=== PATIENT | female | born 2000 | race Caucasian/White ===

== ENCOUNTER 2024-01-11 06:34 | Outpatient (REF) | payer BC, SELFPAY ==
--- NOTE | ~2024-01-11 | US_ITS ---
EXAMINATION: US PELVIS, TRANSABDOMINAL AND TRANSVAGINAL CLINICAL INFORMATION: Weight loss. COMPARISON: None available. TECHNIQUE: Ultrasound of the pelvis is performed using both transabdominal and transvaginal transducers along with Doppler. Transvaginal imaging is performed due to inadequate visualization transabdominally. FINDINGS: UTERUS: The uterus is anteverted and measures 6.8 x 3.0 x 4.3 cm. The double wall endometrial thickness is 6 mm. The uterus is smooth in contour and has normal myometrial echogenicity. No visible fibroid. ADNEXA: Both ovaries are visualized. There is normal color flow to the adnexa. There is no ovarian torsion. There is no pelvic ascites or fluid collection. Right ovary measures 3.1 x 1.6 x 1.8 cm for a volume of 4.2 mL and appears normal. Left ovary measures 4.9 x 2.9 x 5.0 cm for a volume of 38 mL and contains a complex hemorrhagic cyst measuring 4.1 x 2.6 x 4.2 cm. US/US pelvic and transvaginal IMPRESSION: Hemorrhagic left ovarian cyst. A follow-up endovaginal ultrasound is recommended in 3 months. Electronically signed by: Jackson Walsh MD 01/17/2024 03:51 PM EDT
== END 2024-01-11 06:35 | disposition home or self-care (01) ==
LOC: HO.UMASIMG 06:34
PROVIDERS: Visit Provider Family Medicine
DX: R63.4 Abnormal weight loss (principal); L65.9 Nonscarring hair loss, unspecified
CPT/HCPCS: 76830; 76856

== ENCOUNTER 2024-01-16 06:42 | Outpatient (REF) | payer BC, SELFPAY ==
--- NOTE | ~2024-01-16 | US_ITS ---
EXAMINATION: US ABDOMEN COMPLETE CLINICAL INFORMATION: Abnormal weight loss. COMPARISON: None available. TECHNIQUE: Real-time imaging of the abdominal viscera. FINDINGS: PANCREAS: The visualized pancreas appears unremarkable but the pancreatic tail is obscured by bowel gas. ABDOMINAL AORTA: The proximal, mid, and distal segments are normal in caliber. INFERIOR VENA CAVA: Visualized portions are normal. LIVER: The liver is normal in size. The liver contour is normal. Parenchymal echogenicity is normal. No focal hepatic lesion. There is no intrahepatic biliary duct dilatation seen. GALLBLADDER: The gallbladder is physiologically distended without evidence of stones, sludge, polyps, wall thickening or pericholecystic fluid. Stanford's sign is negative COMMON BILE DUCT: Normal in caliber measuring 0.3 cm in diameter. RIGHT KIDNEY: Normal. No hydronephrosis. No renal calculi or focal parenchymal lesions. The kidney measures 9.9 cm in maximum dimension. LEFT KIDNEY: Normal. No hydronephrosis. No renal calculi or focal parenchymal lesions. The kidney measures 10.0 cm in maximum dimension. SPLEEN: Normal. The spleen measures 11.0 cm in maximum dimension. FREE FLUID: None. US/US abdomen complete IMPRESSION: Negative exam. A cause for the patient's weight loss has not been found. Electronically signed by: Jackson Walsh MD 01/16/2024 02:53 PM EDT
== END 2024-01-16 06:43 | disposition home or self-care (01) ==
LOC: HO.UMASIMG 06:42
PROVIDERS: Visit Provider Family Medicine
DX: L65.9 Nonscarring hair loss, unspecified (principal); R63.4 Abnormal weight loss
CPT/HCPCS: 76700

== ENCOUNTER 2024-04-02 06:40 | Outpatient (REF) | payer BC, SELFPAY ==
--- NOTE | ~2024-04-02 | US_ITS ---
EXAMINATION: US PELVIS CLINICAL INFORMATION: Follow-up left ovarian cyst of December 2023, currently menstruating. COMPARISON: 01/11/2024 TECHNIQUE: Ultrasound of the pelvis is performed using both transabdominal and transvaginal transducers along with Doppler. Transvaginal imaging is performed due to inadequate visualization transabdominally. FINDINGS: Previously seen 4.2 cm left ovarian cyst is not visualized on the current study. Anteverted uterus measures 7.1 x 2.6 x 3.9 cm. Endometrial thickness is 0.3 cm. Small amount of free fluid in the cul-de-sac. Right ovary measures 2.7 x 1.5 x 1.9 cm, volume 4.2 mL and is unremarkable. Left ovary measures 3.0 x 1.7 x 2.2 cm, volume 5.8 mL. Previously identified left ovarian cyst is not appreciated on the current exam. US/US pelvic and transvaginal IMPRESSION: 1. Previously seen 4.2 cm left ovarian cyst is not visualized on the current exam. 2. Endometrial thickness is 0.3 cm. 3. Small amount of free fluid in the cul-de-sac. This study was presented today April 03, 2024 for interpretation. Stat results provided at this time as requested by referring provider. Electronically signed by: Caitlin Murphy MD 04/03/2024 07:56 AM [id number]
== END 2024-04-02 06:41 | disposition home or self-care (01) ==
LOC: HO.UMASIMG 06:40
PROVIDERS: Visit Provider Family Medicine
DX: R63.4 Abnormal weight loss (principal)
CPT/HCPCS: 76830; 76856